=== PATIENT | female | born 1945 | race Caucasian/White ===

== ENCOUNTER 2017-03-02 23:18 | Emergency (ER) | payer MEDICARE ==
[~2017-03-02] VITALS: Ht 157.5 cm; Wt 67.0 kg
[~2017-03-02 23:18] MED LIST: ACET325T51 PO; BUSP15TA3 PO; DULO60CA61 PO; ESTR42.52 VG; GABA600T2 PO; HYDR-4003 PO; HYDR200T PO; IBUP200C PO; LISI10TA PO; MULT-1018 PO; SYN.15T2 PO
[2017-03-02 23:21] VITALS: BP 151/78; PULSE 74; RESP 16; O2SAT 100
--- NOTE | 2017-03-02 23:54 | ED.REPORT ---
HPI-Extremity Problem Upper Date of Service March 02, 2017 ED Provider: Charlie Escudero MD Pt is a 71 year old female with a history of HTN and arthritis who presents to the ED with concerns for left wrist pain following a ground level fall. She denies any trauma to her head or any LOC. She reports that she stepped backwards off of a curb, causing her injury. Pt reports continued wrist pain and mild bruising. She has no other complaints. Nursing Notes Stated Complaint: FALL, L ARM PAIN Chief Complaint: Extremity Trauma Nursing Notes Reviewed: Yes Allergies: Coded Allergies: pregabalin (Verified Allergy, Mild, LOWER EXTREMITY SWELLING AND CONFUSION , 01/01/17) Scheduled Buspirone (Buspirone) 15 Mg Tablet 15 MG PO BID Duloxetine (Duloxetine) 60 Mg Capsule.dr 60 MG PO DAILY Gabapentin (Gabapentin) 600 Mg Tablet 600 MG PO TID-QID Hydroxychloroquine Sulfate (Plaquenil) 200 Mg Tablet 200 MG PO DAILY Levothyroxine (Synthroid) 150 Mcg Tablet 150 MCG PO DAILY Lisinopril (Lisinopril) 10 Mg Tablet 10 MG PO BID Multivitamin (Multi Vitamin Daily) 1 Each Tablet 1 EACH PO DAILY Scheduled PRN Acetaminophen (Acetaminophen) 325 Mg Tablet 325 MG PO Q4H PRN PRN For Pain Estradiol (Estrace) 42.5 Gm Cream.appl 1 G VG UD PRN PRN 3 TIMES A WK Hydrocodone-Acetaminophen 5-325 mg (Hydrocodone-Acetaminophen 5-325 mg) 1 Each Tablet 0.5-1 TABLET PO Q4H PRN PRN For Pain Ibuprofen (Ibuprofen) 200 Mg Capsule 200 MG PO Q 12 HRS PRN PRN PRN For Pain General Time Seen by MD: 23:54 Chief Complaint Wrist injury left Hx Obtained From: Patient Arrived By: Walk-in Onset Occurred: Just prior to arrival Symptom Duration: Since onset Caused by: Accidental, Fall on ground Location: : Wrist left Quality: Painful Severity: Current: Mild Severity: Maximum: Moderate Similar Sx Previous: Yes Past Medical History Past Medical History HTN Fibromyalgia Arthritis Sarcoidosis Ambulatory Status Independent Review of Systems Constitutional: Denies: Chills, Fever, Malaise Musculoskeletal: Reports: Extremity pain, Denies: Back pain, Neck pain Skin: Denies Diaphoresis Neurologic: Denies: Change LOC, Headache, Syncope, Weakness Complete sys rev & neg: except as marked. Physical Exam Initial Vital Signs Vital Signs (First) Date Time Temp Pulse Resp B/P Pulse Ox O2 Delivery O2 Flow Rate FiO2 03/02/17 23:21 36.3 74 16 151/78 100 Room Air Initial VS: Reviewed General/Constitutional: Well-developed, Well-nourished Head / Eyes: Atraumatic, Normocephalic, PERRL ENT: Mucous membranes moist, Conjunctiva normal, No scleral icterus Neck: Supple, Non-tender, Full range of motion Respiratory: Breath sounds normal, Clear to auscultation, No respiratory distress Cardiovascular: Regular rate & rhythm, Heart sounds normal, Intact distal pulses Neurologic: Alert, Oriented, Nonfocal Upper Extremity / MS: Atraumatic, Inspection NL, No swelling, No snuffbox tenderness, No erythema, No deformity, Neurologic intact, Vascular intact, Tendon function NL Interpretation & Diagnostics X-Ray Interpretation Xray Interpretation: No fracture identified. Arthritic changes noted X-Ray Ordered: Wrist left Interpretation / Wet Read by: Wet read ED physician Re-Eval/Medical Decision Med Decision/Clinical Course 71-year-old presents with wrist pain after mechanical fall. 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 No acute fracture noted. Tenderness over the ulnar styloid and associated ligaments. Neurovascular completely intact. Home in premade thumb spica Velcro splint. Follow-up with PCP. Source of Hx: Old records Re-Evaluation/Progress : Time of Eval: 00:18 Re-Evaluation/Progress Note: Pt is rechecked and informed of her imaging results and the plan to discharge her at this time. Her splint appears to be well-placed. All questions are addressed. Counseled Regarding: Diagnosis, Lab results, When/why to return to ED Discharge & Departure Impression: Primary Impression: Fall from ground level Additional Impression: Wrist strain Encounter type: initial encounter Laterality: left Qualified Code: S66.912A - Strain of unspecified muscle, fascia and tendon at wrist and hand level, left hand, initial encounter Disposition: Home Discharge Condition All VS Reviewed: Yes Condition: Stable Patient Instructions: Splint Care (ED), Wrist Injury (ED) Additional Instructions: We see no evidence of bony injury on today's films. If this is not resolving as expected over the next week or so, repeat films can sometimes reveal a nondisplaced injury, not visible on the first x-ray set. Follow-up with your doctor in the office. Wear the splint content curator as long as you are tender. He may remove it to wash, and then replace it after finish bathing. Ibuprofen or Aleve as needed for discomfort. Referrals: Stone Brown MD (PCP) [place] Attestation Portions of this note were transcribed by Yanira Gutiérrez. I, Dr. Escudero personally performed the history, physical exam and medical decision-making; I reviewed and confirmed the accuracy of the information in the transcribed note. Signed by: Ata Peguero, 03/03/2017 12:18 copies to: Stone Brown MD, Christopher W MD March 02, 2017 23:54 DWIGHT GUTIÉRREZ March 03, 2017 00:01
--- NOTE | 2017-03-03 09:10 | DRSVH ---
PROCEDURE: X-RAY LEFT WRIST COMPLETE, MINIMUM THREE VIEWS ([id number]) INDICATIONS: injury TECHNIQUE: 4 views of the wrist were acquired. COMPARISON: None. FINDINGS: Bones: No fractures or dislocations. No suspicious bony lesions. First [facility] osteoarthritis. Osteopen ia. Scaphoid view: Scaphoid is intact. Soft tissues: No suspicious soft tissue calcifications. IMPRESSION: No fracture. No osseous lesion. If symptoms and/or clinical suspicion for pathology pers ists, further assessment with repeat radiographs or advanced imaging (e.g. CT, MRI or bone scan) may be helpful for further assessment. Dictated by: Magalys Curry MD, PhD on 03/03/2017 at 9:07 Approved by: Magalys Curry MD, PhD on 03/03/2017 at 9:09
== END 2017-03-03 00:51 | disposition home or self-care (01) ==
LOC: SED 23:18
DX: S66.912A Strain of unspecified muscle, fascia and tendon at wrist and hand level, left hand, initial encounter (principal); W10.1XXA Fall (on)(from) sidewalk curb, initial encounter; Y93.89 Activity, other specified; Y92.480 Sidewalk as the place of occurrence of the external cause; Y99.8 Other external cause status; I10 Essential (primary) hypertension; Z88.8 Allergy status to other drugs, medicaments and biological substances